=== PATIENT | male | born 1990 | race Caucasian/White ===

== ENCOUNTER 2019-01-10 16:53 | Emergency (ER) | payer MEDICAID ==
[~2019-01-10] VITALS: Ht 180.3 cm; Wt 96.5 kg
[~2019-01-10 16:53] MED LIST: OLAN10TA6 PO
[2019-01-10 17:35] VITALS: BP 151/92
== END 2019-01-10 18:43 | disposition home or self-care (01) ==
LOC: EMS 16:53
DX: F20.9 Schizophrenia, unspecified (principal); F17.210 Nicotine dependence, cigarettes, uncomplicated
CPT/HCPCS: 99406

== ENCOUNTER 2019-01-14 02:58 | Emergency (ER) | payer SELFPAY ==
[~2019-01-14] VITALS: Ht 180.3 cm; Wt 104.5 kg
[2019-01-14 03:31] LABS: APPEARANCE,URINE CLOUDY (CLEAR); BILIRUBIN,URINE NEGATIVE (NEGATIVE); GLUCOSE, URINE (UA) NEGATIVE (NEGATIVE); KETONES,URINE NEGATIVE (NEGATIVE); LEUKOCYTE ESTERASE ,URINE NEGATIVE (NEGATIVE); NITRATE,URINE NEGATIVE (NEGATIVE); OCCULT BLOOD,URINE NEGATIVE (NEGATIVE); PH,URINE 6.5 (5.0-8.0); PROTEIN,URINE NEGATIVE (NEGATIVE); UROBILINOGEN,URINE 0.2 mg/dL (<=1.0)
[2019-01-14 03:33] VITALS: BP 135/89
[2019-01-14 03:37] LABS: AMPHET/METH SCREEN,URINE NEGATIVE (NEGATIVE); BARBITURATE SCREEN, URINE NEGATIVE (NEGATIVE); BENZODIAZEPINES SCREEN,URINE NEGATIVE (NEGATIVE); CANNABINOID SCREEN,URINE POSITIVE (NEGATIVE); COCAINE SCREEN,URINE NEGATIVE (NEGATIVE); METHADONE SCREEN, URINE NEGATIVE (NEGATIVE); OPIATE SCREEN,URINE NEGATIVE (NEGATIVE)
[2019-01-14] MEDS ORDERED: OLANZapine 5 MG TABLET PO ONE (03:45)
[2019-01-14 03:59] LABS: PHENCYCLIDINE SCREEN,URINE NEGATIVE (NEGATIVE)
== END 2019-01-14 04:40 | disposition home or self-care (01) ==
LOC: EMS 03:01
DX: F20.0 Paranoid schizophrenia (principal); Z91.14 Patient's other noncompliance with medication regimen; F17.210 Nicotine dependence, cigarettes, uncomplicated; F12.10 Cannabis abuse, uncomplicated
CPT/HCPCS: 99406

== ENCOUNTER 2019-03-28 11:32 | Inpatient (IN) | payer MEDICAID ==
[~2019-03-28] VITALS: Ht 180.3 cm; Wt 108.4 kg
[2019-03-28] MEDS ORDERED: LORazepam 2 MG TABLET PO ONE (12:00)
[2019-03-28] MEDS ORDERED: HALOPERIDOL 5 MG TABLET PO ONE (12:00)
[2019-03-28 12:22] LABS: AMPHET/METH SCREEN,URINE NEGATIVE (NEGATIVE); BARBITURATE SCREEN, URINE NEGATIVE (NEGATIVE); BENZODIAZEPINES SCREEN,URINE NEGATIVE (NEGATIVE); CANNABINOID SCREEN,URINE POSITIVE (NEGATIVE); COCAINE SCREEN,URINE NEGATIVE (NEGATIVE); METHADONE SCREEN, URINE NEGATIVE (NEGATIVE); OPIATE SCREEN,URINE NEGATIVE (NEGATIVE)
[2019-03-28 12:23] LABS: PHENCYCLIDINE SCREEN,URINE NEGATIVE (NEGATIVE)
[2019-03-28 14:30] LABS: BASOPHILS % (AUTO) 0.8 % (0.0-2.0); EOSINOPHILS % (AUTO) 2.2 % (1.0-6.0); HEMATOCRIT 44.9 % (41-53); HEMOGLOBIN 15.6 g/dL (13.5-17.5); LYMPHOCYTES # (AUTO) 1.8 K/uL (1.0-4.8); MEAN CORPUSCULAR HEMOGLOBIN 32.1 pg (26.0-34.0); MEAN CORPUSCULAR HGB CONC 34.8 G/dL (31.0-37.0); MEAN CORPUSCULAR VOLUME 92 fL (80-100); MONOCYTES # (AUTO) 0.6 K/uL (0.1-1.0); MONOCYTES % (AUTO) 7.8 % (2.0-9.0); NEUTROPHILS # (AUTO) 4.6 K/uL (1.8-7.7); NEUTROPHILS % (AUTO) 64.2 % (40.0-70.0); PLATELET COUNT (AUTO) 345 K/uL (150-450); RED BLOOD CELL COUNT(AUTO) 4.86 MIL/uL (4.50-5.90); RED CELL DISTRIBUTION WIDTH 13.7 % (11.5-14.5)
[2019-03-28] MEDS ORDERED: ACETAMINOPHEN 325 MG TABLET PO PRN ×2 (14:30→20:15)
[2019-03-28] MEDS ORDERED: IBUPROFEN 400 MG TABLET PO PRN ×2 (14:30→20:15)
[2019-03-28 14:49] LABS: ANION GAP 11 mmol/L (8-16); CARBON DIOXIDE 24 mmol/L (22-29); CHLORIDE 102 mmol/L (98-107); CREATININE 0.77 mg/dL (0.60-1.30); GLOMERULAR FILTR. RATE CALC > 60 mL/min (>60); GLUCOSE,RANDOM 117 mg/dL (70-110); POTASSIUM 4.1 mmol/L (3.5-5.1); SODIUM SERUM 137 mmol/L (136-145); UREA NITROGEN, BLOOD 11 mg/dL (7-18)
[2019-03-28 14:54] LABS: ALANINE AMINOTRANSFERASE 72 U/L (12-78); ALBUMIN 3.8 g/dL (3.4-5.0); ALKALINE PHOSPHATASE 52 U/L (46-116); ASPARTATE AMINOTRANSFERASE 39 U/L (15-37); BILIRUBIN,TOTAL 0.7 mg/dL (0.1-1.0); TOTAL PROTEIN, SERUM 7.7 g/dL (6.4-8.2)
[2019-03-28 19:45] VITALS: BP 163/97
[2019-03-28 19:54] VITALS: BP 163/97
[2019-03-28] MEDS ORDERED: LOPERAMIDE HCL 2 MG CAPSULE PO PRN (20:15)
[2019-03-28] MEDS ORDERED: DOCUSATE SODIUM 100 MG CAPSULE PO PRN (20:15)
[2019-03-28] MEDS ORDERED: MAGNESIUM HYDROXIDE SUSPENSION 30 ML UDCUP PO PRN (20:15)
[2019-03-28] MEDS ORDERED: MAG HYDROX/AL HYDROX/SIMETH ES 30 ML SUSPENSION UDCUP PO PRN (20:15)
[2019-03-28] MEDS ORDERED: ONDANSETRON HCL 4 MG TABLET PO PRN (20:15)
[2019-03-28] MEDS ORDERED: ALBUTEROL SULFATE HFA 90 MCG/PUFF 8 GM INHALER IH PRN (20:15)
[2019-03-28] MEDS ORDERED: NICOTINE 14 MG/24 HOUR PATCH TD PRN (20:15)
[2019-03-28] MEDS ORDERED: GuaiFENesin/D-METHORPHAN [SUGAR-FREE] 200-20MG/10 ML SYRUP UDCUP PO PRN (20:15)
[2019-03-28] MEDS ORDERED: PETROLATUM,WHITE 28 GM JELLY TP PRN (20:15)
[2019-03-28] MEDS ORDERED: CloNIDine HCL 0.1 MG TABLET PO PRN (20:15)
[2019-03-28] MEDS: LORazepam 2 MG TABLET PO PRN (21:14)
[2019-03-28] MEDS: ZOLPIDEM TARTRATE 10 MG TABLET PO PRN (21:14)
[2019-03-28 22:07] VITALS: BP 121/70
[2019-03-29 06:06] VITALS: BP 122/79
[2019-03-29 08:00] VITALS: BP 139/89
[2019-03-29 08:01] LABS: BASOPHILS % (AUTO) 0.9 % (0.0-2.0); EOSINOPHILS % (AUTO) 4.2 % (1.0-6.0); HEMATOCRIT 44.7 % (41-53); HEMOGLOBIN 15.2 g/dL (13.5-17.5); LYMPHOCYTES # (AUTO) 2.2 K/uL (1.0-4.8); LYMPHOCYTES % (AUTO) 35.5 % (22.0-44.0); MEAN CORPUSCULAR HEMOGLOBIN 31.6 pg (26.0-34.0); MEAN CORPUSCULAR HGB CONC 34.1 G/dL (31.0-37.0); MEAN CORPUSCULAR VOLUME 93 fL (80-100); MONOCYTES # (AUTO) 0.6 K/uL (0.1-1.0); MONOCYTES % (AUTO) 9.9 % (2.0-9.0); NEUTROPHILS % (AUTO) 49.5 % (40.0-70.0); PLATELET COUNT (AUTO) 338 K/uL (150-450); RED BLOOD CELL COUNT(AUTO) 4.83 MIL/uL (4.50-5.90); RED CELL DISTRIBUTION WIDTH 13.5 % (11.5-14.5)
[2019-03-29 08:20] LABS: HEMOGLOBIN A1C 5.2 % (4.5-6.2)
[2019-03-29 08:51] LABS: ALANINE AMINOTRANSFERASE 73 U/L (12-78); ALBUMIN 3.7 g/dL (3.4-5.0); ALKALINE PHOSPHATASE 46 U/L (46-116); ANION GAP 10 mmol/L (8-16); ASPARTATE AMINOTRANSFERASE 34 U/L (15-37); CALCIUM, TOTAL 9.3 mg/dL (8.8-10.5); CARBON DIOXIDE 28 mmol/L (22-29); CHLORIDE 103 mmol/L (98-107); CHOL/HDL RATIO 7.1 (4.2-7.3); CHOLESTEROL 241 mg/dL (131-200); CREATININE 0.82 mg/dL (0.60-1.30); GLOMERULAR FILTR. RATE CALC > 60 mL/min (>60); GLUCOSE,RANDOM 93 mg/dL (70-110); HDL CHOLESTEROL 34 mg/dL (40-60); POTASSIUM 4.3 mmol/L (3.5-5.1); SODIUM SERUM 141 mmol/L (136-145); THYROID STIMULATING HORMONE 1.86 uIU/mL (0.36-3.74); TOTAL PROTEIN, SERUM 7.4 g/dL (6.4-8.2); TRIGLYCERIDES 587 mg/dL (15-150); UREA NITROGEN, BLOOD 12 mg/dL (7-18)
[2019-03-29 16:47] VITALS: BP 123/73
[2019-03-29] MEDS: LORazepam 2 MG TABLET PO PRN (21:28)
[2019-03-29] MEDS: ZOLPIDEM TARTRATE 10 MG TABLET PO PRN (21:28)
[2019-03-30 04:21] VITALS: BP 161/95
[2019-03-30] MEDS: HALOPERIDOL 5 MG TABLET PO PRN ×2 (04:46→16:01)
[2019-03-30] MEDS: LORazepam 2 MG TABLET PO PRN ×2 (04:46→16:01)
[2019-03-30 08:17] VITALS: BP 134/63
[2019-03-30 16:00] VITALS: BP 125/73
[2019-03-30] MEDS: RisperiDONE 1 MG TABLET PO SCH (16:01)
[2019-03-30] MEDS: ZOLPIDEM TARTRATE 10 MG TABLET PO PRN (20:55)
[2019-03-31 08:22] VITALS: BP 119/78
[2019-03-31] MEDS: RisperiDONE 1 MG TABLET PO SCH (08:41)
[2019-03-31] MEDS ORDERED: RISP1 PO (08:57)
[2019-03-31] MEDS ORDERED: OMEG-135 PO (08:57)
[2019-03-31] MEDS ORDERED: OMEGA-3/DHA/EPA/FISH OIL 1,000 MG CAPSULE PO SCH (09:00)
== END 2019-03-31 12:10 | disposition home or self-care (01) | DRG 750 ==
LOC: EMS 11:37 → B3A 16:18
PROVIDERS: ADMIT Psychiatry & Neurology Psychiatry; ATTEND Psychiatry & Neurology Psychiatry
DX: F20.0 Paranoid schizophrenia (principal); R45.851 Suicidal ideations; Z91.19 Patient's noncompliance with other medical treatment and regimen; E78.5 Hyperlipidemia, unspecified; F17.210 Nicotine dependence, cigarettes, uncomplicated; F12.10 Cannabis abuse, uncomplicated; F32.9 Major depressive disorder, single episode, unspecified; R03.0 Elevated blood-pressure reading, without diagnosis of hypertension; Z71.51 Drug abuse counseling and surveillance of drug abuser
CPT/HCPCS: 83036; 84443; G0480

== ENCOUNTER 2019-04-02 16:28 | Inpatient (IN) | payer MEDICAID ==
[~2019-04-02] VITALS: Ht 180.3 cm; Wt 107.0 kg
[~2019-04-02 16:28] MED LIST changes: -OLAN10TA6 PO; +OMEG-135 PO; +RISP1 PO
[2019-04-02 21:45] VITALS: BP 145/87
[2019-04-02] MEDS ORDERED: LOPERAMIDE HCL 2 MG CAPSULE PO PRN (21:45)
[2019-04-02] MEDS ORDERED: ACETAMINOPHEN 325 MG TABLET PO PRN (21:45)
[2019-04-02] MEDS ORDERED: GuaiFENesin/D-METHORPHAN [SUGAR-FREE] 200-20MG/10 ML SYRUP UDCUP PO PRN (21:45)
[2019-04-02] MEDS ORDERED: MAG HYDROX/AL HYDROX/SIMETH ES 30 ML SUSPENSION UDCUP PO PRN (21:45)
[2019-04-02] MEDS ORDERED: PETROLATUM,WHITE 28 GM JELLY TP PRN (21:45)
[2019-04-02] MEDS ORDERED: ALBUTEROL SULFATE HFA 90 MCG/PUFF 8 GM INHALER IH PRN (21:45)
[2019-04-02] MEDS ORDERED: NICOTINE 14 MG/24 HOUR PATCH TD PRN (21:45)
[2019-04-02] MEDS ORDERED: IBUPROFEN 400 MG TABLET PO PRN (21:45)
[2019-04-02] MEDS ORDERED: DOCUSATE SODIUM 100 MG CAPSULE PO PRN (21:45)
[2019-04-02] MEDS ORDERED: ONDANSETRON HCL 4 MG TABLET PO PRN (21:45)
[2019-04-02] MEDS ORDERED: MAGNESIUM HYDROXIDE SUSPENSION 30 ML UDCUP PO PRN (21:45)
[2019-04-02] MEDS ORDERED: CloNIDine HCL 0.1 MG TABLET PO PRN (21:45)
[2019-04-02] MEDS: LORazepam 2 MG TABLET PO PRN (22:09)
[2019-04-02] MEDS: HALOPERIDOL 5 MG TABLET PO PRN (22:09)
[2019-04-03 06:15] VITALS: BP 139/77
[2019-04-03 08:06] VITALS: BP 139/81
[2019-04-03] MEDS: RisperiDONE 1 MG TABLET PO SCH ×2 (08:17→16:26)
[2019-04-03 08:28] LABS: BASOPHILS % (AUTO) 0.5 % (0.0-2.0); EOSINOPHILS % (AUTO) 2.5 % (1.0-6.0); HEMATOCRIT 44.9 % (41-53); HEMOGLOBIN 15.5 g/dL (13.5-17.5); LYMPHOCYTES # (AUTO) 2.2 K/uL (1.0-4.8); LYMPHOCYTES % (AUTO) 35.8 % (22.0-44.0); MEAN CORPUSCULAR HEMOGLOBIN 31.9 pg (26.0-34.0); MEAN CORPUSCULAR HGB CONC 34.4 G/dL (31.0-37.0); MEAN CORPUSCULAR VOLUME 93 fL (80-100); MONOCYTES # (AUTO) 0.5 K/uL (0.1-1.0); MONOCYTES % (AUTO) 8.1 % (2.0-9.0); NEUTROPHILS # (AUTO) 3.3 K/uL (1.8-7.7); NEUTROPHILS % (AUTO) 53.1 % (40.0-70.0); PLATELET COUNT (AUTO) 344 K/uL (150-450); RED BLOOD CELL COUNT(AUTO) 4.84 MIL/uL (4.50-5.90); RED CELL DISTRIBUTION WIDTH 13.6 % (11.5-14.5)
[2019-04-03] MEDS: LORazepam 2 MG TABLET PO PRN (08:46)
[2019-04-03 08:54] LABS: ALANINE AMINOTRANSFERASE 57 U/L (12-78); ALBUMIN 3.7 g/dL (3.4-5.0); ALKALINE PHOSPHATASE 45 U/L (46-116); ANION GAP 12 mmol/L (8-16); ASPARTATE AMINOTRANSFERASE 23 U/L (15-37); BILIRUBIN,TOTAL 0.8 mg/dL (0.1-1.0); CALCIUM, TOTAL 9.4 mg/dL (8.8-10.5); CARBON DIOXIDE 28 mmol/L (22-29); CHLORIDE 103 mmol/L (98-107); CHOL/HDL RATIO 6.8 (4.2-7.3); CHOLESTEROL 216 mg/dL (131-200); CREATININE 0.85 mg/dL (0.60-1.30); FREE T4 (FREE THYROXINE) 0.95 ng/dL (0.76-1.46); GLOMERULAR FILTR. RATE CALC > 60 mL/min (>60); GLUCOSE,RANDOM 77 mg/dL (70-110); HDL CHOLESTEROL 32 mg/dL (40-60); LDL CHOL (CALC.) 130 mg/dL (0-130); POTASSIUM 4.6 mmol/L (3.5-5.1); SODIUM SERUM 143 mmol/L (136-145); THYROID STIMULATING HORMONE 2.19 uIU/mL (0.36-3.74); TOTAL PROTEIN, SERUM 7.2 g/dL (6.4-8.2); TRIGLYCERIDES 269 mg/dL (15-150); UREA NITROGEN, BLOOD 11 mg/dL (7-18)
[2019-04-03 09:21] LABS: HEMOGLOBIN A1C 5.8 % (4.5-6.2)
[2019-04-03] MEDS ORDERED: RisperiDONE 1 MG TABLET PO SCH (10:15)
[2019-04-03 16:04] VITALS: BP 133/86
[2019-04-03] MEDS: ZOLPIDEM TARTRATE 10 MG TABLET PO PRN (20:59)
[2019-04-04 04:27] VITALS: BP 135/81
[2019-04-04 08:02] VITALS: BP 137/82
[2019-04-04] MEDS: RisperiDONE 1 MG TABLET PO SCH ×2 (08:09→16:34)
[2019-04-04] MEDS: OXcarbazepine 300 MG TABLET PO SCH ×2 (11:43→16:34)
[2019-04-04] MEDS ORDERED: OXcarbazepine 300 MG TABLET PO SCH (17:00)
[2019-04-04 17:52] VITALS: BP 138/82
[2019-04-04] MEDS: ZOLPIDEM TARTRATE 10 MG TABLET PO PRN (20:33)
[2019-04-05 00:12] VITALS: BP 123/63
[2019-04-05] MEDS: LORazepam 2 MG TABLET PO PRN ×2 (02:39→11:49)
[2019-04-05 08:12] VITALS: BP 118/65
[2019-04-05] MEDS: OXcarbazepine 300 MG TABLET PO SCH ×2 (08:15→16:23)
[2019-04-05] MEDS: RisperiDONE 1 MG TABLET PO SCH ×2 (08:15→16:23)
[2019-04-05 16:06] VITALS: BP 133/88
[2019-04-05] MEDS: ZOLPIDEM TARTRATE 10 MG TABLET PO PRN (21:13)
[2019-04-06 00:10] VITALS: BP 127/72
[2019-04-06] MEDS: OXcarbazepine 300 MG TABLET PO SCH ×2 (08:17→17:06)
[2019-04-06] MEDS: RisperiDONE 1 MG TABLET PO SCH ×2 (08:17→17:06)
[2019-04-06 08:25] VITALS: BP 114/63
[2019-04-06] MEDS: HALOPERIDOL 5 MG TABLET PO PRN (13:25)
[2019-04-06 16:09] VITALS: BP 143/77
[2019-04-06] MEDS: LORazepam 2 MG TABLET PO PRN (20:40)
[2019-04-06] MEDS: ZOLPIDEM TARTRATE 10 MG TABLET PO PRN (22:05)
[2019-04-07 00:34] VITALS: BP 118/74
[2019-04-07 08:12] VITALS: BP 120/60
[2019-04-07] MEDS: OXcarbazepine 300 MG TABLET PO SCH ×2 (08:12→17:10)
[2019-04-07] MEDS: RisperiDONE 1 MG TABLET PO SCH ×2 (08:12→17:10)
[2019-04-07 16:11] VITALS: BP 140/91
[2019-04-07] MEDS: ZOLPIDEM TARTRATE 10 MG TABLET PO PRN (21:00)
[2019-04-08 05:16] VITALS: BP 130/88
[2019-04-08] MEDS: HALOPERIDOL 5 MG TABLET PO PRN (05:43)
[2019-04-08] MEDS: LORazepam 2 MG TABLET PO PRN ×2 (08:15→17:12)
[2019-04-08 08:23] VITALS: BP 140/76
[2019-04-08] MEDS: RisperiDONE 1 MG TABLET PO SCH (08:44)
[2019-04-08] MEDS: OXcarbazepine 300 MG TABLET PO SCH ×2 (08:44→17:12)
[2019-04-08 16:35] VITALS: BP 124/68
[2019-04-08] MEDS: RisperiDONE 2 MG TABLET PO SCH (17:12)
[2019-04-08] MEDS: ZOLPIDEM TARTRATE 10 MG TABLET PO PRN (20:21)
[2019-04-09 00:57] VITALS: BP 105/62
[2019-04-09] MEDS: OXcarbazepine 300 MG TABLET PO SCH ×2 (08:21→16:20)
[2019-04-09] MEDS: RisperiDONE 2 MG TABLET PO SCH ×2 (08:21→16:20)
[2019-04-09] MEDS: OMEGA-3/DHA/EPA/FISH OIL 1,000 MG CAPSULE PO SCH (08:22)
[2019-04-09 08:50] VITALS: BP 145/91
[2019-04-09] MEDS: LORazepam 2 MG TABLET PO PRN (16:20)
[2019-04-09 16:21] VITALS: BP 137/90
[2019-04-09] MEDS: ZOLPIDEM TARTRATE 10 MG TABLET PO PRN (21:09)
[2019-04-10 01:07] VITALS: BP 111/63
[2019-04-10 08:14] VITALS: BP 130/83
[2019-04-10] MEDS: RisperiDONE 2 MG TABLET PO SCH ×2 (08:14→17:15)
[2019-04-10] MEDS: OMEGA-3/DHA/EPA/FISH OIL 1,000 MG CAPSULE PO SCH (08:14)
[2019-04-10] MEDS: OXcarbazepine 300 MG TABLET PO SCH ×2 (08:14→17:15)
[2019-04-10 16:26] VITALS: BP 137/80
[2019-04-10] MEDS: LORazepam 2 MG TABLET PO PRN (18:02)
[2019-04-10] MEDS: ZOLPIDEM TARTRATE 10 MG TABLET PO PRN (20:19)
[2019-04-11 00:30] VITALS: BP 100/60
[2019-04-11 08:12] VITALS: BP 120/60
[2019-04-11] MEDS: OXcarbazepine 300 MG TABLET PO SCH (08:54)
[2019-04-11] MEDS: RisperiDONE 2 MG TABLET PO SCH (08:54)
[2019-04-11] MEDS ORDERED: OXCA300T29 PO (10:18)
[2019-04-11] MEDS: OMEGA-3/DHA/EPA/FISH OIL 1,000 MG CAPSULE PO SCH (10:52)
== END 2019-04-11 11:40 | disposition home or self-care (01) | DRG 750 ==
LOC: B2S 20:38
PROVIDERS: ADMIT Psychiatry & Neurology Psychiatry; ATTEND Psychiatry & Neurology Psychiatry
DX: F25.9 Schizoaffective disorder, unspecified (principal); E78.5 Hyperlipidemia, unspecified; F10.10 Alcohol abuse, uncomplicated; F32.9 Major depressive disorder, single episode, unspecified; Y90.9 Presence of alcohol in blood, level not specified
CPT/HCPCS: 83036; 84439; 84443; 87081; Q0162

== ENCOUNTER 2019-06-13 10:24 | Emergency (ER) | payer SELFPAY ==
[~2019-06-13] VITALS: Ht 180.3 cm; Wt 109.1 kg
[~2019-06-13 10:24] MED LIST changes: +OXCA300T29 PO
[2019-06-13 11:31] LABS: BASOPHILS % (AUTO) 1.1 % (0.0-2.0); EOSINOPHILS % (AUTO) 2.1 % (1.0-6.0); HEMATOCRIT 44.4 % (41-53); HEMOGLOBIN 15.8 g/dL (13.5-17.5); LYMPHOCYTES # (AUTO) 2.6 K/uL (1.0-4.8); MEAN CORPUSCULAR HEMOGLOBIN 31.9 pg (26.0-34.0); MEAN CORPUSCULAR HGB CONC 35.5 G/dL (31.0-37.0); MEAN CORPUSCULAR VOLUME 90 fL (80-100); MONOCYTES # (AUTO) 0.6 K/uL (0.1-1.0); MONOCYTES % (AUTO) 7.8 % (2.0-9.0); NEUTROPHILS # (AUTO) 4.7 K/uL (1.8-7.7); PLATELET COUNT (AUTO) 371 K/uL (150-450); RED BLOOD CELL COUNT(AUTO) 4.94 MIL/uL (4.50-5.90); RED CELL DISTRIBUTION WIDTH 13.9 % (11.5-14.5)
[2019-06-13 11:41] LABS: ANION GAP 12 mmol/L (8-16); CALCIUM, TOTAL 9.4 mg/dL (8.8-10.5); CARBON DIOXIDE 24 mmol/L (22-29); CHLORIDE 104 mmol/L (98-107); CREATININE 0.87 mg/dL (0.60-1.30); GLOMERULAR FILTR. RATE CALC > 60 mL/min (>60); GLUCOSE,RANDOM 115 mg/dL (70-110); SODIUM SERUM 140 mmol/L (136-145); UREA NITROGEN, BLOOD 12 mg/dL (7-18)
[2019-06-13 11:47] LABS: ALBUMIN 4.2 g/dL (3.4-5.0); ALKALINE PHOSPHATASE 69 U/L (46-116); BILIRUBIN,TOTAL 0.9 mg/dL (0.1-1.0)
[2019-06-13 12:03] LABS: TOTAL PROTEIN, SERUM 8.3 g/dL (6.4-8.2)
[2019-06-13 12:07] LABS: ALANINE AMINOTRANSFERASE 76 U/L (12-78)
[2019-06-13 12:32] LABS: ASPARTATE AMINOTRANSFERASE 46 U/L (15-37)
[2019-06-13 12:39] VITALS: BP 138/79
== END 2019-06-13 13:02 | disposition home or self-care (01) ==
LOC: EMS 10:25
DX: R44.0 Auditory hallucinations (principal); R45.851 Suicidal ideations; F20.9 Schizophrenia, unspecified; F17.210 Nicotine dependence, cigarettes, uncomplicated; F12.90 Cannabis use, unspecified, uncomplicated
CPT/HCPCS: 36415; 80053; 85025; 99285; G0480

== ENCOUNTER 2020-12-09 16:48 | Emergency (ER) | payer OTHER ==
[~2020-12-09] VITALS: Ht 180.3 cm; Wt 120.0 kg
[2020-12-09 18:45] LABS: APPEARANCE,URINE CLEAR (CLEAR); BILIRUBIN,URINE NEGATIVE (NEGATIVE); GLUCOSE, URINE (UA) NEGATIVE (NEGATIVE); KETONES,URINE NEGATIVE (NEGATIVE); LEUKOCYTE ESTERASE ,URINE NEGATIVE (NEGATIVE); NITRATE,URINE NEGATIVE (NEGATIVE); OCCULT BLOOD,URINE NEGATIVE (NEGATIVE); PH,URINE 6.5 (5.0-8.0); PROTEIN,URINE POS 1+ (NEGATIVE); UROBILINOGEN,URINE 0.2 mg/dL (<=1.0)
[2020-12-09 18:49] LABS: BASOPHILS % (AUTO) 0.7 % (0.0-2.0); EOSINOPHILS % (AUTO) 1.4 % (1.0-6.0); HEMATOCRIT 42.3 % (41-53); HEMOGLOBIN 14.3 g/dL (13.5-17.5); LYMPHOCYTES # (AUTO) 1.7 K/uL (1.0-4.8); LYMPHOCYTES % (AUTO) 26.3 % (22.0-44.0); MEAN CORPUSCULAR HEMOGLOBIN 30.9 pg (26.0-34.0); MEAN CORPUSCULAR HGB CONC 33.9 G/dL (31.0-37.0); MEAN CORPUSCULAR VOLUME 91 fL (80-100); MONOCYTES # (AUTO) 0.5 K/uL (0.1-1.0); MONOCYTES % (AUTO) 7.7 % (2.0-9.0); NEUTROPHILS # (AUTO) 4.1 K/uL (1.8-7.7); NEUTROPHILS % (AUTO) 63.9 % (40.0-70.0); PLATELET COUNT (AUTO) 350 K/uL (150-450); RED BLOOD CELL COUNT(AUTO) 4.64 MIL/uL (4.50-5.90); RED CELL DISTRIBUTION WIDTH 13.5 % (11.5-14.5)
[2020-12-09 18:51] LABS: AMPHET/METH SCREEN,URINE NEGATIVE (NEGATIVE); BARBITURATE SCREEN, URINE NEGATIVE (NEGATIVE); BENZODIAZEPINES SCREEN,URINE NEGATIVE (NEGATIVE); CANNABINOID SCREEN,URINE POSITIVE (NEGATIVE); COCAINE SCREEN,URINE NEGATIVE (NEGATIVE); METHADONE SCREEN, URINE NEGATIVE (NEGATIVE); OPIATE SCREEN,URINE NEGATIVE (NEGATIVE)
[2020-12-09 18:52] LABS: PHENCYCLIDINE SCREEN,URINE NEGATIVE (NEGATIVE)
[2020-12-09 18:59] LABS: ANION GAP 10 mmol/L (8-16); CALCIUM, TOTAL 9.3 mg/dL (8.8-10.5); CARBON DIOXIDE 28 mmol/L (22-29); CHLORIDE 103 mmol/L (98-107); CREATININE 0.83 mg/dL (0.60-1.30); GLOMERULAR FILTR. RATE CALC > 60 mL/min (>60); GLUCOSE,RANDOM 106 mg/dL (70-110); POTASSIUM 3.6 mmol/L (3.5-5.1); SODIUM SERUM 141 mmol/L (136-145); UREA NITROGEN, BLOOD 7 mg/dL (7-18)
[2020-12-09 19:05] LABS: BACTERIA,URINE None Seen /HPF (None Seen); RBC,URINE None Seen /HPF (0-2); SQUAMOUS EPITHELIAL CELL,UR None Seen /LPF (None Seen); WBC,URINE 0-2 /HPF (0-5)
[2020-12-09 19:05] LABS: ALANINE AMINOTRANSFERASE 42 U/L (12-78); ALBUMIN 4.1 g/dL (3.4-5.0); ALKALINE PHOSPHATASE 64 U/L (46-116); ASPARTATE AMINOTRANSFERASE 25 U/L (15-37); BILIRUBIN,TOTAL 0.7 mg/dL (0.1-1.0)
[2020-12-09 20:19] LABS: LITHIUM < 0.20 mmol/L (0.60-1.20)
[2020-12-09 20:25] VITALS: BP 136/70
== END 2020-12-09 20:25 | disposition home or self-care (01) ==
LOC: EMS 16:48
DX: F20.0 Paranoid schizophrenia (principal); F43.22 Adjustment disorder with anxiety; F17.210 Nicotine dependence, cigarettes, uncomplicated; F12.90 Cannabis use, unspecified, uncomplicated
CPT/HCPCS: 36415; 80053; 80178; 80307; 81001; 85025; 99285; G0480